=== PATIENT | male | born 1930 | race Caucasian/White ===

== ENCOUNTER 2016-10-20 01:31 | Emergency (ER) | payer MEDICARE, OTHER ==
[2016-10-20] MEDS ORDERED: BABY ASPIRIN 81 MG CHEW PO ONE (01:52)
[2016-10-20] MEDS ORDERED: Nitrostat 0.4 MG (ED) SL ONE ×2 (01:52→02:19)
--- NOTE | 2016-10-20 01:58 | ERPHSYRPT ---
- History of Present Illness Time Seen by Provider: 10/20/16 01:35 Source: patient Exam Limitations: no limitations Patient Subjective Stated Complaint: Pt states he had a sudden onset of left sided chest and back pain. He was sitting down when it started. He also states that he vomited x1. He said that the pain got so bad that he couldnt sit or lie down. Unsure if it is his heart or if he pulled something lifting 2 lb weights yesterday morning. Triage Nursing Assessment: Patient alert and oriented x3. skin pink warm and dry. afebrile. lung sounds clear. irregular cardiac rhythm Physician History: ABOUT 2 HOURS AGO PT STARTED WITH LEFT LATERAL ACHY CHEST PAIN AND MID BACK PAIN WITH VOMITING X1 AND DIARRHEA X1. PT STATES 3 HOURS BEFORE THE ONSET OF PAIN HE WAS LIFTING 2# WEIGHTS. Allergies/Adverse Reactions: No Known Drug Allergies Allergy (Unverified 10/20/16 01:42) Home Medications: Clopidogrel Bisulfate 75 mg [PLAVIX 75 MG Tablet] 75 mg PO DAILY 10/20/16 [History] Gemfibrozil 600 mg [Lopid 600 mg] 1,200 mg PO DAILY 10/20/16 [History] Losartan Potassium 25 mg PO DAILY 10/20/16 [History] [place]-3 Fatty Acids/Fish Oil [Fish Oil 1,000 mg Capsule] 1,000 mg PO DAILY 10/20/16 [History] Omeprazole 20 MG [Prilosec 20 mg] 20 mg PO DAILY 10/20/16 [History] Hx Tetanus, Diphtheria Vaccination/Date Given: No Hx Influenza Vaccination/Date Given: Yes Hx Pneumococcal Vaccination/Date Given: Yes - Review of Systems Constitutional: No Fever Respiratory: No Dyspnea Cardiac: Chest Pain Abdominal/Gastrointestinal: Vomiting, Diarrhea, No Abdominal Pain Musculoskeletal: Back Pain Skin: No Rash Endocrine: No Excessive Sweating All Other Systems: Reviewed and Negative - Past Medical History Pertinent Past Medical History: Yes Neurological History: Stroke Cardiac History: Hypertension Musculoskeletal History: Fractures GI Medical History: GERD - Past Surgical History Past Surgical History: Yes Musculoskeletal: Orthopedic Surgery - Social History Smoking Status: Never smoker Exposure to second hand smoke: No Drug Use: none Patient Lives Alone: No - Nursing Vital Signs Nursing Vital Signs: Initial Vital Signs Temperature 97.9 F Temperature Source Oral Pulse Rate [] 70 Pulse Rate 82 Respiratory Rate 18 Blood Pressure [] 151/80 Pain Intensity 0 - Physical Exam General Appearance: alert Eye Exam: PERRL/EOMI Ears, Nose, Throat Exam: pharynx normal, moist mucous membranes Neck Exam: normal inspection Respiratory Exam: lungs clear, No chest tenderness Cardiovascular Exam: No friction rub Gastrointestinal/Abdomen Exam: soft, normal bowel sounds Back Exam: normal inspection Extremity Exam: normal inspection Neurologic Exam: alert, cooperative Skin Exam: warm, dry SpO2 Interpretation: borderline oxygenation SpO2: 91 Oxygen Delivery: Room Air - Course Nursing assessment & vital signs reviewed: Yes EKG Interpreted by Me: RATE (63), NORMAL AXIS, NORMAL QRS, Other (PVC) - Radiology Exams Chest X-ray Interpretation: Interpreted by me, No Pneumonia Ordered Tests: Active Orders 24 hr Category Date Time Status Blender STAT Care 10/20/16 01:52 Active EKG-ER Only STAT Care 10/20/16 01:52 Active EKG-ER Only STAT Care 10/20/16 04:02 Active IV Insertion STAT Care 10/20/16 01:52 Active Oxygen-ED Only NASAL CANNULA 2 lpm Care 10/20/16 01:52 Active Pulse Oximetry (ED) STAT Care 10/20/16 01:52 Active CHEST 1 VIEW (PORTABLE) Stat Exams 10/20/16 01:52 Taken AMYLASE Stat Lab 10/20/16 02:31 Completed CBC W DIFF Stat Lab 10/20/16 02:31 Completed CMP Stat Lab 10/20/16 02:31 Completed LIPASE Stat Lab 10/20/16 02:31 Completed MAGNESIUM Stat Lab 10/20/16 02:31 Completed TROPONIN Q3H Lab 10/20/16 02:31 Completed TROPONIN Q3H Lab 10/20/16 05:00 Ordered TROPONIN Q3H Lab 10/20/16 08:00 Ordered TROPONIN Q3H Lab 10/20/16 11:00 Ordered TROPONIN Q3H Lab 10/20/16 14:00 Ordered TROPONIN Stat Lab 10/20/16 04:15 Completed UA W/ MICROSCOPIC Stat Lab 10/20/16 03:09 Completed Medication Summary Generic Name Dose Route Start Last Admin Trade Name Freq PRN Reason Stop Dose Admin Sodium Chloride 1,000 mls @ 100 mls/hr 10/20/16 02:00 10/20/16 02:22 Sodium Chloride 0.9% 1000 Ml IV 11/19/16 01:59 100 mls/hr .Q10H HOMER Administration Discontinued Medications Generic Name Dose Route Start Last Admin Trade Name Shine PRN Reason Stop Dose Admin Aspirin 324 mg 10/20/16 01:52 10/20/16 02:20 Baby Aspirin 81 Mg Chew PO 10/20/16 01:53 324 mg STAT ONE Administration Aspirin Confirm 10/20/16 02:19 Baby Aspirin 81 Mg Chew Administered 10/20/16 02:20 Dose 324 mg .ROUTE .STK-MED ONE Morphine Sulfate 2 mg 10/20/16 05:22 Morphine Sulfate 2 Mg Inj IV 10/20/16 05:23 STAT ONE Nitroglycerin 0.4 mg 10/20/16 01:52 10/20/16 02:22 Nitrostat 0.4 Mg (Ed) SL 10/20/16 01:53 0.4 mg STAT ONE Administration Nitroglycerin Confirm 10/20/16 02:19 Nitrostat 0.4 Mg (Ed) Administered 10/20/16 02:20 Dose 0.4 mg SL .STK-MED ONE Promethazine HCl 6.25 mg 10/20/16 05:22 Phenergan 25 Mg Inj IV 10/20/16 05:23 STAT ONE Lab/Rad Data: Laboratory Result Diagrams 10/20/16 02:31 10/20/16 02:31 Laboratory Results 10/20/16 10/20/16 10/20/16 Range/Units 04:15 03:09 02:31 WBC (4.0-10.5) K/mm3 RBC (4.1-5.6) M/mm3 Hgb (12.5-18.0) gm/dl Hct (42-50) % MCV (78-100) fl MCH (26-32) pg MCHC (32-36) g/dl RDW (11.5-14.0) % Plt Count (150-450) K/mm3 MPV (6-9.5) fl Gran % (36.0-66.0) % Lymphocytes % (24.0-44.0) % Monocytes % (0.0-12.0) % Eosinophils % (0.00-5.0) % Basophils % (0.0-0.4) % Basophils # (0-0.4) Sodium (136-145) mEq/L Potassium (3.5-5.1) mEq/L Chloride (98-107) mEq/L Carbon Dioxide (21-32) mEq/L Anion Gap (5-15) MEQ/L BUN (9-20) mg/dL Creatinine (0.55-1.30) mg/dl Estimated GFR ML/MIN Glucose (70-110) MG/DL Calcium (8.5-10.1) mg/dL Magnesium (1.8-2.4) mg/dL Total Bilirubin (0.2-1.0) mg/dL AST (15-37) U/L ALT (12-78) U/L Alkaline Phosphatase (46-116) U/L Troponin I < 0.017 < 0.017 (0.000-0.056) ng/ml Serum Total Protein (6.4-8.2) gm/dL Albumin (3.4-5.0) g/dL Amylase (25-115) U/L Lipase (73-393) U/L Ur Collection Type VOID Urine Color YELLOW (YELLOW) Urine Appearance CLEAR (CLEAR) Urine pH 6.0 (5-6) Ur Specific [place] 1.020 (1.005-1.025) Urine Protein TRACE (Negative) Urine Ketones NEGATIVE (NEGATIVE) Urine Blood 50 (0-5) Keith/ul Urine Nitrite NEGATIVE (NEGATIVE) Urine Bilirubin NEGATIVE (NEGATIVE) Urine Urobilinogen NORMAL (0-1) mg/dL Ur Leukocyte Esterase NEGATIVE (NEGATIVE) Urine Microscopic RBC 25-50 (0-2) /HPF Urine Microscopic WBC 2-5 (0-5) /HPF Ur Epithelial Cells RARE (FEW) /HPF Urine Bacteria FEW (NEGATIVE) /HPF Urine Glucose NEGATIVE (NEGATIVE) mg/dL Specimen Received 10/20/16 0310 10/20/16 10/20/16 Range/Units 02:31 02:31 WBC 8.1 (4.0-10.5) K/mm3 RBC 4.84 (4.1-5.6) M/mm3 Hgb 15.7 (12.5-18.0) gm/dl Hct 46.7 (42-50) % MCV 96.5 (78-100) fl MCH 32.4 H (26-32) pg MCHC 33.6 (32-36) g/dl RDW 13.1 (11.5-14.0) % Plt Count 271 (150-450) K/mm3 MPV 10.9 H (6-9.5) fl Gran % 58.4 (36.0-66.0) % Lymphocytes % 25.5 (24.0-44.0) % Monocytes % 14.1 H (0.0-12.0) % Eosinophils % 1.6 (0.00-5.0) % Basophils % 0.4 (0.0-0.4) % Basophils # 0.03 (0-0.4) Sodium 140 (136-145) mEq/L Potassium 4.3 (3.5-5.1) mEq/L Chloride 104 (98-107) mEq/L Carbon Dioxide 24.1 (21-32) mEq/L Anion Gap 15.9 H (5-15) MEQ/L BUN 26 H (9-20) mg/dL Creatinine 1.11 (0.55-1.30) mg/dl Estimated GFR > 60 ML/MIN Glucose 147 H (70-110) MG/DL Calcium 9.0 (8.5-10.1) mg/dL Magnesium 2.1 (1.8-2.4) mg/dL Total Bilirubin 0.60 (0.2-1.0) mg/dL AST 19 (15-37) U/L ALT 19 (12-78) U/L Alkaline Phosphatase 83 (46-116) U/L Troponin I (0.000-0.056) ng/ml Serum Total Protein 7.2 (6.4-8.2) gm/dL Albumin 3.6 (3.4-5.0) g/dL Amylase 61 (25-115) U/L Lipase 166 (73-393) U/L Ur Collection Type Urine Color (YELLOW) Urine Appearance (CLEAR) Urine pH (5-6) Ur Specific Nil[place] (1.005-1.025) Urine Protein (Negative) Urine Ketones (NEGATIVE) Urine Blood (0-5) Keith/ul Urine Nitrite (NEGATIVE) Urine Bilirubin (NEGATIVE) Urine Urobilinogen (0-1) mg/dL Ur Leukocyte Esterase (NEGATIVE) Urine Microscopic RBC (0-2) /HPF Urine Microscopic WBC (0-5) /HPF Ur Epithelial Cells (FEW) /HPF Urine Bacteria (NEGATIVE) /HPF Urine Glucose (NEGATIVE) mg/dL Specimen Received - Progress Progress Note: 10/20/16 05:18 REPEAT EKG(0406): RATE=55, NORMAL AXIS, BIGEMINY. Discussed with Dr.: Other (SPOKE WITH IESHA MORENO N.P.(FOR DR SIMS)(~1317) WHO ACCEPTED PT FOR TRANSFER TO [facility] A DIRECT ADMISSION.) - Departure Time of Disposition: 05:34 Departure Disposition: Transfer ([facility]) Clinical Impression: CHEST PAIN, CARDIAC DYSRHYTHMIA, HTN, GERD Condition: Stable Critical Care Time: No Referrals: DONITA RETANA [Primary Care Provider] -
[2016-10-20] MEDS ORDERED: Sodium Chloride 0.9% 1000 ML 1,000 ML IV SCH (02:00)
[2016-10-20] MEDS ORDERED: BABY ASPIRIN 81 MG CHEW ONE (02:19)
[2016-10-20] MEDS ORDERED: Sodium Chloride 0.9% 1000 ML 1,000 ML ONE (02:19)
[2016-10-20 02:34] LABS: BASOPHIL % 0.4 % (0.0-0.4); Eosinophil % 1.6 % (0.00-5.0); Granulocytes % 58.4 % (36.0-66.0); Lymphocytes % 25.5 % (24.0-44.0); Mean Cell Volume 96.5 fl (78-100); Mean Corpuscular Hemoglobin 32.4 pg (26-32); Mean Platelet Volume 10.9 fl (6-9.5); Monocytes % 14.1 % (0.0-12.0); Platelet Count 271 K/mm3 (150-450); Red Blood Count 4.84 M/mm3 (4.1-5.6); Red Cell Distribution Width 13.1 % (11.5-14.0); White Blood Count 8.1 K/mm3 (4.0-10.5)
[2016-10-20 02:59] LABS: ALBUMIN 3.6 g/dL (3.4-5.0); ALKALINE PHOSPHATASE 83 U/L (46-116); ANION GAP 15.9 MEQ/L (5-15); BLOOD UREA NITROGEN 26 mg/dL (9-20); CHLORIDE 104 mEq/L (98-107); Carbon Dioxide 24.1 mEq/L (21-32); Glucose 147 MG/DL (70-110); LIPASE 166 U/L (73-393); MAGNESIUM 2.1 mg/dL (1.8-2.4); Potassium 4.3 mEq/L (3.5-5.1); SGOT/AST 19 U/L (15-37); SGPT/ALT 19 U/L (12-78); SODIUM 140 mEq/L (136-145); Total Protein 7.2 gm/dL (6.4-8.2)
[2016-10-20 03:21] LABS: ADD URINE CULTURE? NO (NO); Bacteria FEW /HPF (NEGATIVE); Bilirubin NEGATIVE (NEGATIVE); Blood 50 Ery/ul (0-5); COMPLETE URINE MICROSCOPIC? YES; Collection Type VOID; Epithelial Cells RARE /HPF (FEW); Glucose NEGATIVE (NEGATIVE); Leukocyte Esterase NEGATIVE (NEGATIVE)
[2016-10-20] MEDS ORDERED: Phenergan 25 MG INJ IV ONE (05:22)
[2016-10-20] MEDS ORDERED: MORPHINE SULFATE 2 MG INJ IV ONE (05:22)
[2016-10-20] MEDS ORDERED: Phenergan 25 MG INJ ONE (05:29)
[2016-10-20] MEDS ORDERED: MORPHINE SULFATE 2 MG INJ ONE (05:30)
[2016-10-20 06:52] VITALS: BP 142/72; PULSE 86; O2SAT 95
--- NOTE | 2016-10-20 08:20 | XRAY ---
Indication: Chest pain. Comparison: January 05, 2010 Portable chest again demonstrates bilateral calcified pleural plaquing without focal infiltrate, consolidation, or large effusion. Heart is not enlarged. Bony thorax intact again with osteopenia and degenerative changes. Impression: Stable nonacute chest with chronic features.
== END 2016-10-20 06:45 | disposition short-term general hospital (02) ==
LOC: ED 01:31
DX: R07.9 Chest pain, unspecified (principal); I49.9 Cardiac arrhythmia, unspecified; I10 Essential (primary) hypertension; K21.9 Gastro-esophageal reflux disease without esophagitis; R11.10 Vomiting, unspecified; R19.7 Diarrhea, unspecified; M54.9 Dorsalgia, unspecified
CPT/HCPCS: 36000; 36415; 71010; 80053; 81000; 82150; 83690; 83735; 84484; 85025; 93005; 93041; 96360; 96361; 96374; 96375; 99285; J2270; J2550; A9270-GY

== ENCOUNTER 2018-11-03 13:43 | Emergency (ER) | payer MEDICARE, OTHER ==
--- NOTE | 2018-11-03 14:15 | ERPHSYRPT ---
- History of Present Illness Time Seen by Provider: 11/03/18 14:05 Historian: patient Exam Limitations: no limitations Patient Subjective Stated Complaint: Pt states "I am bleeding from the bottom." Triage Nursing Assessment: Pt presented through the front placed in room 6. Pt ambulates slowly with a walker. PT able to speak in clear full sentences. Physician History: 87 y/op white male on plavix presents with 3 day h/o mild rectal bleeding described as very mild in the toilet when bearing down. today noticed a drop on brb on underwear. the last few days there have been dark stools and a few mild clots. pt denies pain of any type anywhere. no known h/o hemorrhoids. Timing/Duration: day(s) (3) Activities at Onset: none Abdominal Pain Onset Location: other (no pain) Pain Radiation: no radiation Severity of Pain-Max: none Severity of Pain-Current: none Modifying Factors: Improves With: nothing Associated Symptoms: denies symptoms Previous symptoms: no prior history Allergies/Adverse Reactions: No Known Drug Allergies Allergy (Verified 11/03/18 13:53) Home Medications: Clopidogrel Bisulfate 75 mg [PLAVIX 75 MG Tablet] 75 mg PO DAILY 10/20/16 [History] Gemfibrozil 600 mg [Lopid 600 mg] 1,200 mg PO DAILY 10/20/16 [History] Losartan Potassium 25 mg PO DAILY 10/20/16 [History] [place]-3 Fatty Acids/Fish Oil [Fish Oil 1,000 mg Capsule] 1,000 mg PO DAILY 10/20/16 [History] Omeprazole 20 MG [Prilosec 20 mg] 20 mg PO DAILY 10/20/16 [History] Red Yeast Rice 600 mg PO DAILY 11/03/18 [History] Tamsulosin HCl 0.4 mg [Flomax 0.4 MG] 0.4 mg PO DAILY 11/03/18 [History] Hx Tetanus, Diphtheria Vaccination/Date Given: No Hx Influenza Vaccination/Date Given: Yes Hx Pneumococcal Vaccination/Date Given: Yes Immunizations Up to Date: Yes - Review of Systems Constitutional: No Symptoms Eyes: No Symptoms Ears, Nose, & Throat: No Symptoms Respiratory: No Symptoms Cardiac: No Symptoms Abdominal/Gastrointestinal: Other (dark stool a few mild small clots) Genitourinary Symptoms: No Symptoms Musculoskeletal: No Symptoms Skin: No Symptoms Neurological: No Symptoms Psychological: No Symptoms Endocrine: No Symptoms Hematologic/Lymphatic: No Symptoms Immunological/Allergic: No Symptoms All Other Systems: Reviewed and Negative - Past Medical History Pertinent Past Medical History: Yes Neurological History: Stroke ENT History: No Pertinent History Cardiac History: Hypertension Respiratory History: No Pertinent History Endocrine Medical History: No Pertinent History Musculoskeletal History: Fractures GI Medical History: GERD History: No Pertinent History Psycho-Social History: No Pertinent History Male Reproductive Disorders: No Pertinent History - Past Surgical History Past Surgical History: Yes Musculoskeletal: Orthopedic Surgery - Social History Smoking Status: Never smoker Exposure to second hand smoke: No Drug Use: none Patient Lives Alone: No - Nursing Vital Signs Nursing Vital Signs: Initial Vital Signs Temperature 97.7 F 11/03/18 13:47 Pulse Rate 84 11/03/18 13:47 Respiratory Rate 18 11/03/18 13:47 Blood Pressure 173/94 11/03/18 13:47 O2 Sat by Pulse Oximetry 92 L 11/03/18 13:47 Pain Scale Pain Intensity 0 - Physical Exam General Appearance: no apparent distress, alert, anxiety Eye Exam: PERRL/EOMI, eyes nml inspection Ears, Nose, Throat Exam: normal ENT inspection, moist mucous membranes Neck Exam: normal inspection, non-tender, supple, full range of motion Respiratory Exam: normal breath sounds, lungs clear, airway intact, No chest tenderness, No respiratory distress Cardiovascular Exam: regular rate/rhythm, normal heart sounds, normal peripheral pulses Gastrointestinal/Abdomen Exam: soft, normal bowel sounds, No tenderness, No guarding, No rebound Rectal Exam: normal exam, normal rectal tone, other (guiac sent), No hemorrhoids Back Exam: normal inspection, normal range of motion, vertebral tenderness, No CVA tenderness Extremity Exam: normal inspection, normal range of motion, pelvis stable Neurologic Exam: alert, oriented x 3, cooperative, skinning machine feeder II-XII nml as tested, normal mood/affect Skin Exam: normal color, warm, dry Lymphatic Exam: No adenopathy SpO2 Interpretation: borderline oxygenation SpO2: 92 O2 Delivery: Room Air - Course Nursing assessment & vital signs reviewed: Yes Ordered Tests: Active Orders 24 hr Category Date Time Status IV Insertion STAT Care 11/03/18 14:08 Active CBC W DIFF Stat Lab 11/03/18 14:20 Completed CMP Stat Lab 11/03/18 14:20 Completed Occult Blood, Other Screening Stat Lab 11/03/18 14:20 Completed PROTIME WITH INR Stat Lab 11/03/18 14:45 Completed Lab/Rad Data: Laboratory Result Diagrams 11/03/18 14:20 11/03/18 14:20 Laboratory Results 11/03/18 11/03/18 11/03/18 Range/Units 14:45 14:20 14:20 WBC (4.0-10.5) K/mm3 RBC (4.1-5.6) M/mm3 Hgb (12.5-18.0) gm/dl Hct (42-50) % MCV (78-100) fl MCH (26-32) pg MCHC (32-36) g/dl RDW (11.5-14.0) % Plt Count (150-450) K/mm3 MPV (6-9.5) fl Gran % (36.0-66.0) % Eos # (Auto) (0-0.5) Absolute Lymphs (auto) (1.0-4.6) Absolute Monos (auto) (0.0-1.3) Lymphocytes % (24.0-44.0) % Monocytes % (0.0-12.0) % Eosinophils % (0.00-5.0) % Basophils % (0.0-0.4) % Absolute Granulocytes (1.4-6.9) Basophils # (0-0.4) PT 13.1 H (8.83-12.87) SECONDS INR 1.16 (0.8-3.0) Sodium 141 (137-145) mmol/L Potassium 4.3 (3.5-5.1) mmol/L Chloride 108 H (98-107) mmol/L Carbon Dioxide 21 L (22-30) mmol/L Anion Gap 16.2 H (5-15) MEQ/L BUN 42 H (9-20) mg/dL Creatinine 1.19 (0.66-1.25) mg/dL Estimated GFR > 60.0 ML/MIN Glucose 119 H (74-106) mg/dL Calcium 9.3 (8.4-10.2) mg/dL Total Bilirubin 0.70 (0.2-1.3) mg/dL AST 27 (17-59) U/L ALT 21 (0-50) U/L Alkaline Phosphatase 65 (38-126) U/L Serum Total Protein 6.8 (6.3-8.2) g/dL Albumin 3.9 (3.5-5.0) g/dL Stool Occult Blood POSITIVE A (Negative) 11/03/18 Range/Units 14:20 WBC 8.1 (4.0-10.5) K/mm3 RBC 4.00 L (4.1-5.6) M/mm3 Hgb 13.2 (12.5-18.0) gm/dl Hct 39.4 L (42-50) % MCV 98.5 (78-100) fl MCH 33.0 H (26-32) pg MCHC 33.5 (32-36) g/dl RDW 13.3 (11.5-14.0) % Plt Count 261 (150-450) K/mm3 MPV 10.8 H (6-9.5) fl Gran % 56.6 (36.0-66.0) % Eos # (Auto) 0.16 (0-0.5) Absolute Lymphs (auto) 2.26 (1.0-4.6) Absolute Monos (auto) 1.07 (0.0-1.3) Lymphocytes % 27.8 (24.0-44.0) % Monocytes % 13.2 H (0.0-12.0) % Eosinophils % 2.0 (0.00-5.0) % Basophils % 0.4 (0.0-0.4) % Absolute Granulocytes 4.61 (1.4-6.9) Basophils # 0.03 (0-0.4) PT (8.83-12.87) SECONDS INR (0.8-3.0) Sodium (137-145) mmol/L Potassium (3.5-5.1) mmol/L Chloride (98-107) mmol/L Carbon Dioxide (22-30) mmol/L Anion Gap (5-15) MEQ/L BUN (9-20) mg/dL Creatinine (0.66-1.25) mg/dL Estimated GFR ML/MIN Glucose (74-106) mg/dL Calcium (8.4-10.2) mg/dL Total Bilirubin (0.2-1.3) mg/dL AST (17-59) U/L ALT (0-50) U/L Alkaline Phosphatase (38-126) U/L Serum Total Protein (6.3-8.2) g/dL Albumin (3.5-5.0) g/dL Stool Occult Blood (Negative) - Progress Progress: unchanged, re-examined Progress Note: 11/03/18 15:23 pt has a reducible right inguinal hernia. Counseled pt/family regarding: lab results, diagnosis, need for follow-up - Departure Departure Disposition: Home Clinical Impression: Rectal bleeding, Right inguinal hernia Condition: Stable Critical Care Time: No Additional Instructions: stop plavix and all anticoagulation medication. follow up with dr. navarrete and robina tomorrow morning for further management and instructions
[2018-11-03 14:37] LABS: BASOPHIL % 0.4 % (0.0-0.4); Basophil (Absolute #) 0.03 (0-0.4); Eosinophil (Absolute #) 0.16 (0-0.5); Granulocyte Absolute (ANC) 4.61 (1.4-6.9); Granulocytes % 56.6 % (36.0-66.0); Hematocrit 39.4 % (42-50); Hemoglobin 13.2 gm/dl (12.5-18.0); Lymphocyte (Absolute #) 2.26 (1.0-4.6); Lymphocytes % 27.8 % (24.0-44.0); Mean Cell Volume 98.5 fl (78-100); Mean Corpuscular Hgb Concent. 33.5 g/dl (32-36); Mean Platelet Volume 10.8 fl (6-9.5); Monocyte (Absolute #) 1.07 (0.0-1.3); Monocytes % 13.2 % (0.0-12.0); Platelet Count 261 K/mm3 (150-450); Red Cell Distribution Width 13.3 % (11.5-14.0); White Blood Count 8.1 K/mm3 (4.0-10.5)
[2018-11-03 14:48] LABS: ALBUMIN 3.9 g/dL (3.5-5.0); ALKALINE PHOSPHATASE 65 U/L (38-126); ANION GAP 16.2 MEQ/L (5-15); BLOOD UREA NITROGEN 42 mg/dL (9-20); CHLORIDE 108 mmol/L (98-107); Calcium 9.3 mg/dL (8.4-10.2); Carbon Dioxide 21 mmol/L (22-30); Creatinine 1 1.19 mg/dL (0.66-1.25); Glucose 119 mg/dL (74-106); Potassium 4.3 mmol/L (3.5-5.1); SGOT/AST 27 U/L (17-59); SGPT/ALT 21 U/L (0-50); SODIUM 141 mmol/L (137-145); Total Protein 6.8 g/dL (6.3-8.2)
[2018-11-03 15:09] LABS: INR 1.16 (0.8-3.0); PROTIME 13.1 SECONDS (8.83-12.87)
[2018-11-03 15:28] VITALS: BP 133/77; PULSE 75; O2SAT 90
== END 2018-11-03 15:33 | disposition home or self-care (01) ==
LOC: ED 13:43
DX: K62.5 Hemorrhage of anus and rectum (principal); K40.90 Unilateral inguinal hernia, without obstruction or gangrene, not specified as recurrent; I10 Essential (primary) hypertension; Z79.899 Other long term (current) drug therapy
CPT/HCPCS: 36000; 36415; 80053; 82272; 85025; 85610; 99284